=== PATIENT | female | born 2000 | race Caucasian/White ===

== ENCOUNTER 2020-06-28 01:11 | Inpatient (IN) | payer BC ==
[2020-06-28] VITALS (14 sets, daily range): BP systolic 85–103; BP diastolic 45–69
[~2020-06-28] VITALS: Ht 160 cm; Wt 53.8 kg
[2020-06-28] MEDS ORDERED: IV NORMAL SALINE 1000ML BAG 1,000 ML IV ONE ×2 (02:00→03:00)
--- NOTE | 2020-06-28 02:04 | PHYS DOC ---
General Adult EDM: Chief Complaint: SUICDAL IDEATION HPI: HPI: Patient is a 20 year old female who presents with complaints of acute overdose at about 10 PM on Monday night. Patient reports that she is under a lot of stress but is unable to specifically tell me why she decided do an overdose today. There is no troubles with relationships, she says she is not having any difficulty with finances and is no longer in school. However she does suffer from bipolar illness and PTSD. Today she took an unknown quantity but as many as 30 300 mg immediate release lithium as well as an unknown amount of Klonopin and or alprazolam. Patient arrives with some mild slurring of her speech but a GCS of 15 by EMS. Patient states that she vomited about an hour after she ingested the medications. She denied any diarrhea, chest pain, shortness of breath or headache. Patient had been in her usual state of fair physical health without any recent illnesses, cough cold or abdominal pain Review of Systems: Review of Systems: Constitutional: Denies fever or chills. [] Eyes: Denies change in visual acuity. [] HENT: Denies nasal congestion or sore throat. [] Respiratory: Denies cough or shortness of breath. [] Cardiovascular: Denies chest pain or edema. [] GI: Denies abdominal pain, nausea, vomiting, bloody stools or diarrhea. [] : Denies dysuria. [] Musculoskeletal: Denies back pain or joint pain. [] Integument: Denies rash. [] Neurologic: Denies headache, focal weakness or sensory changes. [] Endocrine: Denies polyuria or polydipsia. [] Lymphatic: Denies swollen glands. [] Psychiatric: Denies depression or anxiety. [] Heart Score: Risk Factors: Risk Factors: DM, Current or recent (<one month) smoker, HTN, HLP, family h istory of CAD, obesity. Risk Scores: Score 0 - 3: 2.5% MACE over next 6 weeks - Discharge Home Score 4 - 6: 20.3% MACE over next 6 weeks - Admit for Clinical Observation Score 7 - 10: 72.7% MACE over next 6 weeks - Early Invasive Strategies Physical Exam: PE: Constitutional: Well developed, well nourished, no acute distress, non-toxic appearance. [] HENT: Normocephalic, atraumatic, bilateral external ears normal, oropharynx moist, no oral exudates, nose normal. [] Eyes: PERRLA, EOMI, conjunctiva normal, no discharge. No ocular clonus [] Neck: Normal range of motion, no tenderness, supple, no stridor. [] Cardiovascular:Heart rate regular rhythm, no murmur [] Lungs & Thorax: Bilateral breath sounds clear to auscultation [] Abdomen: Bowel sounds normal, soft, no tenderness, no masses, no pulsatile eula s. [] Skin: Warm, dry, no erythema, no rash. [] Back: No tenderness, no CVA tenderness. [] Extremities: No tenderness, no cyanosis, no clubbing, ROM intact, no edema. [] Neurologic: Alert and oriented X 3, normal motor function, normal sensory function, no focal deficits noted. No hyperreflexia, NO resting tremor [] Psychologic: Affect flat, judgement impaired, mood sedate [] EKG: EKG: [] Radiology/Procedures: Radiology/Procedures: [] Course & Med Decision Making: Course & Med Decision Making Pertinent Labs and Imaging studies reviewed. (See chart for details) [] Dragon Disclaimer: Dragon Disclaimer: This electronic medical record was generated, in whole or in part, using a voice recognition dictation system. Justicifation of Admission Dx: Justifications for Admission: Justification of Admission Dx: Yes Comments: [place] overdose Critical Care Note Total Time (mins): 45 Comments Critical care of 45 minutes was billed outside of any teaching or procedure time. Critical care was charged secondary to impending collapse of the met abolic and central nervous system. CE SOLANO MD Jun 28, 2020 02:04
[2020-06-28 02:12] LABS: BASO # 0.1 x10^3/uL (0.0-0.2); BASO % 1 % (0-3); EOS # 0.1 x10^3/uL (0.0-0.7); EOS % 1 % (0-3); HEMOGLOBIN 12.8 g/dL (12.0-15.5); LYMPH # 3.4 x10^3/uL (1.0-4.8); LYMPH % 42 % (24-48); MEAN CORPUSCULAR HEMOGLOBIN 30 pg (25-35); MEAN CORPUSCULAR HGB CONC 34 g/dL (31-37); MEAN CORPUSCULAR VOLUME 90 fL (79-100); MONO # 0.7 x10^3/uL (0.0-1.1); MONO % 9 % (0-9); NEUT # 3.8 x10^3/uL (1.8-7.7); NEUT % 47 % (31-73); PLATELET COUNT 276 x10^3/uL (140-400); RED BLOOD COUNT 4.22 x10^6/uL (3.50-5.40); RED CELL DISTRIBUTION WIDTH 14.1 % (11.5-14.5); WHITE BLOOD COUNT 8.1 x10^3/uL (4.0-11.0)
[2020-06-28 02:28] LABS: CALCIUM 8.6 mg/dL (8.5-10.1); CREATININE 0.8 mg/dL (0.6-1.0); GFR 91.4; POTASSIUM 3.6 mmol/L (3.5-5.1)
[2020-06-28 02:32] LABS: SALIC < 2.8 mg/dL (2.8-20.0)
[2020-06-28 02:33] LABS: ALBUMIN 3.9 g/dL (3.4-5.0); ALBUMIN/GLOBULIN RATIO 1.1 (1.0-1.7); TOTAL BILIRUBIN 0.4 mg/dL (0.2-1.0); TOTAL PROTEIN 7.5 g/dL (6.4-8.2)
[2020-06-28 02:46] LABS: LI 1.9 mmol/L (0.6-1.2)
[2020-06-28 02:56] LABS: ACETAMIN < 2 mcg/ml (10-30)
[2020-06-28 04:23] LABS: BILIRUBIN,URINE NEGATIVE (NEG); CLARITY,URINE CLEAR; COLOR,URINE YELLOW; NITRITE,URINE NEGATIVE (NEG); PH,URINE 8.5 (<5.0-8.0); PROTEIN,URINE NEGATIVE (NEG-TRACE); UROBILINOGEN,URINE 0.2 mg/dL (0.2 mg/dL)
[2020-06-28 04:30] LABS: BARBITURATES NEG (NEG); BENZODIAZEPINES NEG (NEG); CANNABINOIDS NEG (NEG); COCAINE NEG (NEG); METHADONE NEG (NEG); OPIATES NEG (NEG); PHENCYCLIDINE NEG (NEG)
[2020-06-28 04:36] LABS: AMPHETAMINE/METHAMPHETAMINE NEG (NEG)
[2020-06-28 04:41] LABS: BACTERIA,URINE MODERATE /HPF (0-FEW); LI 1.7 mmol/L (0.6-1.2); RBC,URINE OCC /HPF (0-2); SQUAMOUS EPITHELIAL CELL,UR MOD /LPF
[2020-06-28] MEDS ORDERED: IV NORMAL SALINE 1000ML BAG 1,000 ML IV SCH (05:00)
[2020-06-28 05:32] LABS: U PREG PATIENT NEGATIVE (NEG)
[2020-06-28 06:16] LABS: LI 1.3 mmol/L (0.6-1.2)
--- NOTE | 2020-06-28 07:30 | NUR ---
Pt to ICU from ED by cart. Pt ambulated to bed. A&Ox4. SBP 80's - SR 50's. Asked patient if she was trying to kill herself by taking medication overdose. Said she didn't want to say because she has to go to work tomorrow and doesn't want to get admitted to a psych unit. Psychiatric Assessment Team notified. Pt on 1:1 suicide watch with Q15 minute checks. [place] levels being monitored every hours - lab values trending down.
[2020-06-28 10:10] LABS: LI 0.9 mmol/L (0.6-1.2)
[2020-06-28 10:14] LABS: CALCIUM 8.3 mg/dL (8.5-10.1); CREATININE 0.5 mg/dL (0.6-1.0); GFR 157.3; POTASSIUM 3.7 mmol/L (3.5-5.1)
--- NOTE | 2020-06-28 12:27 | EKG ---
[facility] [address] [place] [address] Test Date: 2020-06-28 Test Time: 02:23:55 Pat Name: LIAM HWANG Department: Room: Gender: F Telecommunications Switch Technician: : 2000 Requested By: CE SOLANO Order Number: [id number] Reading MD: Measurements Intervals [place] Rate: 68 P: 69 [place]: 164 QRS: 73 QRSD: 76 T: 65 QT: 386 QTc: 415 Interpretive Statements SINUS RHYTHM OTHERWISE NORMAL ECG RI6.01 No previous ECG available for comparison
--- NOTE | 2020-06-28 12:28 | SSS ---
ADMIT DATE: 06/28/2020 CHIEF COMPLAINT: Ingestion. HISTORY OF PRESENT ILLNESS: The patient is a pleasant 20-year-old female who has had a long history of suicidal ideation and suicide attempts as well as anorexia and other issues. Basically, she took as many as thirty 300-mg immediate release tablets of lithium. She also took an unknown amount of Xanax and Klonopin. When she initially presented to the ER, she had a GCS of 15. She came in by ambulance. She has now been admitted to the ICU where she is being examined. She is sleeping. She awoke and states she feels better and wants to go home. I have the psychiatric assessment team here with me. PAST MEDICAL HISTORY: Multiple suicide attempts, depression, anxiety, bipolar. ALLERGIES: SULFAMETHOXAZOLE AND TRIMETHOPRIM. FAMILY HISTORY: Diabetes. SOCIAL HISTORY: She does not drink or smoke. She states she has a job. MEDICATIONS: Reviewed, please refer to the MRAD. REVIEW OF SYSTEMS: GENERAL: No history of weight change, weakness or fevers. SKIN: No bruising, hair changes or rashes. EYES: No blurred, double or loss of vision. NOSE AND THROAT: No history of nosebleeds, hoarseness or sore throat. HEART: No history of palpitations, chest pain or shortness of breath on exertion. LUNGS: Denies cough, hemoptysis, wheezing or shortness of breath. GASTROINTESTINAL: Denies changes in appetite, nausea, vomiting, diarrhea or constipation. GENITOURINARY: No history of frequency, urgency, hesitancy or nocturia. NEUROLOGIC: Denies history of numbness, tingling, tremor or weakness. PSYCHIATRIC: No history of panic, anxiety or depression. ENDOCRINE: No history of heat or cold intolerance, polyuria or polydipsia. EXTREMITIES: Denies muscle weakness, joint pain, pain on walking or stiffness. PHYSICAL EXAMINATION: VITALS: Within normal limits and are stable. GENERAL: No apparent distress. Alert and oriented. HEENT: Normal cephalic atraumatic, external auditory canals are patent. EYES: Extraocular muscles are intact, pupils are equally round and reactive to light and accommodation. MUSCULOSKELETAL: Well developed, well nourished, good range of motion. ENDOCRINE: No thyromegaly was palpated. LYMPHATICS: No cervical chain or axillary nodes were noted. HEMATOPOIETIC: No bruising. NECK: Supple, no JVD, no thyromegaly was noted. LUNGS: Clear to auscultation in all lung roth without rhonchi or wheezing. HEART: RRR, S1, S2 present. Peripheral pulses intact, no obvious murmurs were noted. ABDOMEN: Soft, nontender. Positive bowel sounds no organomegaly, normal bowel sounds. EXTREMITIES: Without any cyanosis, clubbing, or edema. Pedal pulses intact, Homans sign is negative. NEUROLOGIC: Normal speech, normal tone. A and O x 3, moves all extremities, no obvious focal deficits. PSYCHIATRIC: Normal affect, normal mood. Stable. SKIN: No ulcerations or rashes, good skin turgor, no jaundice. VASCULAR: Good capillary refill, neurovascular bundle appears to be intact. ASSESSMENT AND PLAN: Ingestion, suspect suicide attempt, but at this point, she states she feels much better. Basically, we need a psychiatric assessment team to evaluate and see if she needs inpatient psychiatric. For now, we will continue ICU monitoring. Hope to resume her home meds soon. DVT prophylaxis. Full code. Consult Dr. Dawson. NEIDA HANDLEY DO DR: RAMIRO/marycruz JOB#: [id number] / [id number]
[2020-06-29] VITALS (7 sets, daily range): BP systolic 89–107; BP diastolic 46–57
[2020-06-29 04:00] LABS: CALCIUM 8.5 mg/dL (8.5-10.1); CREATININE 0.6 mg/dL (0.6-1.0); GFR 127.5; POTASSIUM 4.1 mmol/L (3.5-5.1)
[2020-06-29] MEDS ORDERED: Ativan PO (04:02)
[2020-06-29] MEDS ORDERED: Klonopin (04:02)
[2020-06-29] MEDS ORDERED: LITH300C PO (04:02)
--- NOTE | 2020-06-29 12:57 | SNU/HH DC ---
DISCHARGE ORDERS DISCHARGE INFORMATION: CONDITION ON DISCHARGE: Stable CODE STATUS: Code Status: Full CORRECTION: SNF STAY <30 DAYS: No HOSPICE: HOSPICE: No HOSPICE EVAL & TREAT: No LTAC: ADMIT TO LTAC: No POST DISCHARGE ORDERS: DIET AFTER DISCHARGE: Regular DISCHARGE MEDICATIONS: Home Meds Reported Medications [Klonopin] No Conflict Check, PRN for ANXIETY 06/29/20 [Ativan] No Conflict Check, 1 TAB PO PRN for ANXIETY 06/29/20 [place] Carbonate (LITHIUM CARBONATE) 300 Mg Capsule, 1 CAP PO BID for Bipolar, #60 CAP 2 Refills 06/29/20 NEIDA HANDLEY III DO Jun 29, 2020 12:57
--- NOTE | 2020-06-29 14:17 | NUR ---
SS following for discharge planning. SS reviewed pt chart and discussed with pt RN. Pt is from home and is currently on room air. Pt had overdose of mental health medications. Pt has history of Bipolar and PTSD. PAT team saw over the weekend. Bruce from the PAT team saw this morning. Pt agreeable to inpatient treatment. Referral phoned and faxed to [facility], ; fax [phone]. SS currently awaiting on acceptance decision. SS will continue to follow for discharge planning.
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
[2020-06-30 03:08] VITALS: BP 94/53
[2020-06-30 06:54] VITALS: BP 99/54
--- NOTE | 2020-06-30 09:00 | PDOC ---
[employer] PROGRESS NOTE Date of Service DOS: DATE: 06/30/20 TIME: 08:58 Chief Complaint Chief Complaint OD SI History of Present Illness History of Present Illness Pt seen and examined Vitals/I&O Vitals/I&O: Vital Signs Date Time Temp Pulse Resp B/P (MAP) Pulse Ox O2 Delivery O2 Flow Rate FiO2 06/30/20 06:54 97.8 53 17 99/54 (69) 98 Room Air 97.8 I & O 06/29/20 06/29/20 06/30/20 15:00 23:00 07:00 Intake Total 150 ml 0 ml 0 ml Balance 150 ml 0 ml 0 ml Physical Exam General: Alert, Oriented X3 Heart: Regular rate Lungs: Clear Abdomen: Normal bowel sounds Extremities: No clubbing Skin: No rashes Assessment and Plan Assessmemt and Plan Resolving OD SI Bipolar Plan Pt is medically stable for dc to inpt psych Comment Review of Relevant I have reviewed the following items anton (where applicable) has been applied. Justicifation of Admission Dx: Justifications for Admission: Justification of Admission Dx: Yes NEIDA HANDLEY III DO Jun 30, 2020 09:00
[2020-06-30 09:36] LABS: LI < 0.2 mmol/L (0.6-1.2)
--- NOTE | 2020-06-30 09:36 | NUR ---
SS following up with discharge planning. Discharge order on the chart for discharge to inpatient psych facility. [facility], ; fax [phone], contacted SS and reported that they needed progress note from today stating that pt is medically stable for discharge. They also reported that they needed recent lithium levels from today. SS discussed with pt RN and Dr. Barry. Stat labs ordered. Progress note completed. SS phoned and faxed progress note to [facility]. SS will fax lab results once received. Pt's RN notified.
--- NOTE | 2020-06-30 10:18 | NUR ---
SS following up with discharge planning. SS faxed updated lithium labs to [facility]. SS currently awaiting bed availability and will proceed accordingly.
[2020-06-30 10:39] VITALS: BP 102/53
--- NOTE | 2020-06-30 11:21 | NUR ---
SS following up with discharge planning. [facility] accepted pt. Report# [phone]. Pt will discharge today and go to [facility] via [facility] transportation between 1300 and 1330. Pt and pt's RN notified. Addendum: 06/30/20 at 1130 by JAKE MARISCAL SS Pt's mother notified.
--- NOTE | 2020-06-30 12:50 | PDOC ---
[employer] PROGRESS NOTE Date of Service DOS: DATE: 06/30/20 TIME: 12:49 Chief Complaint Chief Complaint OD SI History of Present Illness History of Present Illness 06/30/2022 Patient seen and examined Discussed with case management Seems to be at baseline Vitals/I&O Vitals/I&O: Vital Signs Date Time Temp Pulse Resp B/P (MAP) Pulse Ox O2 Delivery O2 Flow Rate FiO2 06/30/20 10:39 97.7 70 17 102/53 (69) 97.7 06/30/20 07:30 Room Air 06/30/20 06:54 98 I & O 06/29/20 06/29/20 06/30/20 14:59 22:59 06:59 Intake Total 150 ml 0 ml 0 ml Balance 150 ml 0 ml 0 ml Physical Exam General: Alert, Oriented X3 Heart: Regular rate Lungs: Clear Abdomen: Normal bowel sounds Extremities: No clubbing Skin: No rashes Labs Labs: Laboratory Tests Test 06/30/20 08:50 [place] Level < 0.2 mmol/L (0.6-1.2) [place] Last Dose Date 06/27/20 [place] Last Dose Time 2200 Assessment and Plan Assessmemt and Plan Overdose and suicidal ideation Patient seems to be at baseline She is medically stable for discharge to inpatient psychiatric center Comment Review of Relevant I have reviewed the following items anton (where applicable) has been applied. Justicifation of Admission Dx: Justifications for Admission: Justification of Admission Dx: Yes NEIDA HANDLEY III DO Jun 30, 2020 12:50
--- NOTE | 2020-06-30 12:59 | NUR ---
Discharge Note: ALAN HWANG EUNICE Discharge instructions and discharge home medications reviewed with Patient and a copy given. All questions have been answered and understanding verbalized. The following instructions and handouts were given: pt packet given to transportation. Discontinued lines and drains: peripheral IV discontinued by 1:1. Patient discharged to mental health facility via wheelchair by transportation.
== END 2020-06-30 12:52 | disposition short-term general hospital (02) | DRG 918 ==
LOC: ER 01:11 → 1 WEST ICU 06:06 → 2 NORTH 06-29 18:25
PROVIDERS: ADMIT Family Medicine; ATTEND Family Medicine
DX: T42.4X2A Poisoning by benzodiazepines, intentional self-harm, initial encounter (principal); R45.851 Suicidal ideations; F31.9 Bipolar disorder, unspecified; F43.10 Post-traumatic stress disorder, unspecified; Z20.828 Contact with and (suspected) exposure to other viral communicable diseases; F60.3 Borderline personality disorder; Y92.89 Other specified places as the place of occurrence of the external cause; Z91.5 Personal history of self-harm; Z88.2 Allergy status to sulfonamides; Z88.8 Allergy status to other drugs, medicaments and biological substances; Z81.8 Family history of other mental and behavioral disorders; Z83.3 Family history of diabetes mellitus
CPT/HCPCS: 36415; 80048; 80053; 80178; 80307; 80329; 81001; 81025; 83605; 84443; 85025; 87086; 87426; 93005; 96360; 96361; 99291; J7030; G0378; G0480; U0003-CS

== ENCOUNTER 2021-02-25 16:56 | Emergency (ER) | payer BC, OTHER ==
[~2021-02-25] VITALS: Ht 160 cm; Wt 43.1 kg
[~2021-02-25 16:56] MED LIST: Ativan PO; Klonopin; LITH300C PO
[2021-02-25] MEDS: IV NORMAL SALINE 1000ML BAG 1,000 ML IV ONE ×2 (17:50)
[2021-02-25] MEDS: ASPIRIN 325 MG TABLET PO ONE (17:50)
[2021-02-25 18:03] LABS: BASO % 1 % (0-3); EOS % 1 % (0-3); HEMATOCRIT 37.6 % (36.0-47.0); HEMOGLOBIN 12.9 g/dL (12.0-15.5); LYMPH # 2.4 x10^3/uL (1.0-4.8); LYMPH % 32 % (24-48); MEAN CORPUSCULAR HEMOGLOBIN 31 pg (25-35); MEAN CORPUSCULAR HGB CONC 34 g/dL (31-37); MEAN CORPUSCULAR VOLUME 91 fL (79-100); MONO # 0.7 x10^3/uL (0.0-1.1); MONO % 9 % (0-9); NEUT # 4.4 x10^3/uL (1.8-7.7); NEUT % 58 % (31-73); PLATELET COUNT 280 x10^3/uL (140-400); RED BLOOD COUNT 4.13 x10^6/uL (3.50-5.40); RED CELL DISTRIBUTION WIDTH 13.6 % (11.5-14.5); WHITE BLOOD COUNT 7.6 x10^3/uL (4.0-11.0)
--- NOTE | 2021-02-25 18:04 | RAD ---
EXAM: CHEST 1 VIEW History: Chest pain COMPARISON: None available. TECHNIQUE: Single portable radiograph of the chest FINDINGS: The cardiac silhouette is unremarkable. The lungs are clear bilaterally. The costophrenic sulci are clear and well demarcated. IMPRESSION: No radiographic evidence of an acute cardiopulmonary process. Electronically signed by: Brandon Santiago MD (02/25/2021 6:02 PM) [id number]
[2021-02-25 18:12] LABS: BILIRUBIN,URINE MODERATE (NEG); CLARITY,URINE CLOUDY; COLOR,URINE AMBER; NITRITE,URINE NEGATIVE (NEG); PROTEIN,URINE 30 mg/dL (NEG-TRACE)
[2021-02-25 18:15] LABS: BARBITURATES NEG (NEG); BENZODIAZEPINES NEG (NEG); CANNABINOIDS NEG (NEG); COCAINE NEG (NEG); METHADONE NEG (NEG); OPIATES NEG (NEG); PHENCYCLIDINE NEG (NEG)
[2021-02-25 18:16] LABS: AMPHETAMINE/METHAMPHETAMINE NEG (NEG)
[2021-02-25 18:33] LABS: HYALINE CASTS, URINE MANY /HPF
[2021-02-25 18:43] LABS: CALCIUM 7.7 mg/dL (8.5-10.1); CREATININE 0.6 mg/dL (0.6-1.0); GFR 127.5; POTASSIUM 3.1 mmol/L (3.5-5.1)
[2021-02-25 18:49] LABS: ALBUMIN 3.4 g/dL (3.4-5.0); ALBUMIN/GLOBULIN RATIO 1.2 (1.0-1.7); MAGNESIUM 1.3 mg/dL (1.8-2.4); TOTAL BILIRUBIN 0.7 mg/dL (0.2-1.0); TOTAL PROTEIN 6.2 g/dL (6.4-8.2)
--- NOTE | 2021-02-25 18:50 | EKG ---
[facility] [address] [place] [address] Test Date: 2021-02-25 Test Time: 17:15:14 Pat Name: LIAM HWANG Department: Room: Gender: F Vaccine Manager: : 2000 Requested By: CARIE GATICA Order Number: [id number] Reading MD: Measurements Intervals [place] Rate: 72 P: 67 [place]: 130 QRS: 79 QRSD: 66 T: 67 QT: 358 QTc: 393 Interpretive Statements SINUS RHYTHM LEFT ATRIAL ABNORMALITY ABNORMAL ECG RI6.02 No previous ECG available for comparison
[2021-02-25 18:53] LABS: AMORPHOUS SEDIMENT,UR PRESENT /HPF
[2021-02-25 18:54] LABS: BACTERIA,URINE 0 /HPF (0-FEW); RBC,URINE 0 /HPF (0-2)
--- NOTE | 2021-02-25 19:43 | PHYS DOC ---
Past Medical History Past Medical History: Anxiety, Bipolar, Other Additional Past Medical Histor: ANOREXIA NERVOSA (ENCARIE Cortez SHIRT FOLDING MACHINE OPERATOR) Past Surgical History: No Surgical History (CARIE GATICA SHIRT FOLDING MACHINE OPERATOR) Smoking Status: Never Smoker Alcohol Use: None (ENCARIE SHIRT FOLDING MACHINE OPERATOR) General Adult EDM: Chief Complaint: CHEST PAIN-NON CARDIAC NATURE HPI: HPI: Patient is a 20 year old female with a history of anxiety, anorexia, bipolar, who presents the ED today to be evaluated for rhabdomyolysis. Patient states she had a lab work drawn by her doctor and she was noted to have a CK of 1000. She states due to anorexia she has not eaten anything for a whole week. She states she had cottage cheese after they told her her CK was up and she needs to come to the ED. Patient is complaining of pain to bilateral lower extremities. Rates the pain as mild and intermittent and states is chronic. Also complaining of 2 out of 10 left-sided chest pain described as sharp and intermittent, patient states the chest pain is chronic. Patient denies anything specifically exacerbating or relieving her pain. (ENCARIE Cortez SHIRT FOLDING MACHINE OPERATOR) Review of Systems: Review of Systems: Constitutional: Denies fever or chills. [] Eyes: Denies change in visual acuity. [] HENT: Denies nasal congestion or sore throat. [] Respiratory: Denies cough or shortness of breath. [] Cardiovascular: Reports chest pain. GI: Denies abdominal pain, nausea, vomiting, bloody stools or diarrhea. [] : Denies dysuria. [] Musculoskeletal: Reports bilateral lower extremity pain. Denies back pain Integument: Denies rash. [] Neurologic: Denies headache, focal weakness or sensory changes. [] Psychiatric: Reports not eating for 1 week, anorexia (DELMYCARIE Vilchis SHIRT FOLDING MACHINE OPERATOR) Heart Score: C/O Chest Pain: N/A Risk Factors: Risk Factors: DM, Current or recent (<one month) smoker, HTN, HLP, family history of CAD, obesity. Risk Scores: Score 0 - 3: 2.5% MACE over next 6 weeks - Discharge Home Score 4 - 6: 20.3% MACE over next 6 weeks - Admit for Clinical Observation Score 7 - 10: 72.7% MACE over next 6 weeks - Early Invasive Strategies (CARIE GATICA SHIRT FOLDING MACHINE OPERATOR) Current Medications: Current Medications Medications (Trade) Dose Ordered Sig/Omero Start Time Stop Time Status Last Admin Dose Admin Aspirin (Kyra Aspirin) 325 mg 1X ONCE 02/25/21 17:30 02/25/21 17:31 DC 02/25/21 17:50 325 MG Sodium Chloride 1,000 ml @ 1,000 mls/hr 1X ONCE 02/25/21 17:30 02/25/21 18:29 DC 02/25/21 17:50 1,000 MLS/HR (CARIE GATICA Dana SHIRT FOLDING MACHINE OPERATOR) Allergies: Allergies: Allergies Coded Allergies Type Severity Reaction Last Updated Verified sulfamethoxazole Allergy Intermediate Rash 06/28/20 Yes trimethoprim Allergy Intermediate Rash 06/28/20 Yes (CARIE GATICA Dana SHIRT FOLDING MACHINE OPERATOR) Physical Exam: PE: Constitutional: Thin anorexic appearing patient, no acute distress, non-toxic appearance. [] HENT: Normocephalic, atraumatic, bilateral external ears normal, oropharynx moist, no oral exudates, nose normal. [] Eyes: PERRLA, EOMI, conjunctiva normal, no discharge. [] Neck: Normal range of motion, no tenderness, supple, no stridor. [] Cardiovascular:Heart rate regular rhythm, no murmur [] Lungs & Thorax: Bilateral breath sounds clear to auscultation [] Abdomen: Bowel sounds normal, soft, no tenderness, no masses, no pulsatile masses. [] Skin: Warm, dry, no erythema, no rash. Left forearm with scabs from chronic cutting Back: No tenderness, no CVA tenderness. [] Extremities: No tenderness, no cyanosis, no clubbing, ROM intact, no edema. [] Neurologic: Alert and oriented X 3, normal motor function, normal sensory func tion, no focal deficits noted. [] Psychologic: Flat affect (CARIE GATICA Dana SHIRT FOLDING MACHINE OPERATOR) Current Patient Data: Labs: Laboratory Tests Test 02/25/21 17:16 02/25/21 17:24 02/25/21 17:43 02/25/21 18:20 Urine Collection Type Unknown Urine Color Devora Urine Clarity Cloudy Urine pH 6.0 (<5.0-8.0) Urine Specific Clifford 1.025 (1.000-1.030) Urine Protein 30 mg/dL (NEG-TRACE) Urine Glucose (UA) Negative mg/dL (NEG) Urine Ketones (Stick) >=80 mg/dL (NEG) Urine Blood Moderate (NEG) Urine Nitrite Negative (NEG) Urine Bilirubin Moderate (NEG) Urine Urobilinogen Dipstick 1.0 mg/dL (0.2 mg/dL) Urine Leukocyte Esterase Trace (NEG) Urine RBC 0 /HPF (0-2) Urine WBC 5-10 /HPF (0-4) Urine Squamous Epithelial Cells Many /LPF Urine Amorphous Sediment Present /HPF Urine Bacteria 0 /HPF (0-FEW) Urine Hyaline Casts Many /HPF Urine Mucus Marked /LPF Urine Opiates Screen Neg (NEG) Urine Methadone Screen Neg (NEG) Urine Barbiturates Neg (NEG) Urine Phencyclidine Screen Neg (NEG) Urine Amphetamine/Methamphetamine Neg (NEG) Urine Benzodiazepines Screen Neg (NEG) Urine Cocaine Screen Neg (NEG) Urine Cannabinoids Screen Neg (NEG) Urine Ethyl Alcohol Neg (NEG) White Blood Count 7.6 x10^3/uL (4.0-11.0) Red Blood Count 4.13 x10^6/uL (3.50-5.40) Hemoglobin 12.9 g/dL (12.0-15.5) Hematocrit 37.6 % (36.0-47.0) Mean Corpuscular Volume 91 fL (79-100) Mean Corpuscular Hemoglobin 31 pg (25-35) Mean Corpuscular Hemoglobin Concent 34 g/dL (31-37) Red Cell Distribution Width 13.6 % (11.5-14.5) Platelet Count 280 x10^3/uL (140-400) Neutrophils (%) (Auto) 58 % (31-73) Lymphocytes (%) (Auto) 32 % (24-48) Monocytes (%) (Auto) 9 % (0-9) Eosinophils (%) (Auto) 1 % (0-3) Basophils (%) (Auto) 1 % (0-3) Neutrophils # (Auto) 4.4 x10^3/uL (1.8-7.7) Lymphocytes # (Auto) 2.4 x10^3/uL (1.0-4.8) Monocytes # (Auto) 0.7 x10^3/uL (0.0-1.1) Eosinophils # (Auto) 0.0 x10^3/uL (0.0-0.7) Basophils # (Auto) 0.0 x10^3/uL (0.0-0.2) POC Urine HCG, Qualitative Hcg negative (Negative) Sodium Level 143 mmol/L (136-145) Potassium Level 3.1 mmol/L (3.5-5.1) L Chloride Level 107 mmol/L (98-107) Carbon Dioxide Level 17 mmol/L (21-32) L Anion Gap 19 (6-14) H Blood Urea Nitrogen 15 mg/dL (7-20) Creatinine 0.6 mg/dL (0.6-1.0) Estimated GFR (Cockcroft-Gault) 127.5 BUN/Creatinine Ratio 25 (6-20) H Glucose Level 67 mg/dL (70-99) L Calcium Level 7.7 mg/dL (8.5-10.1) L Magnesium Level 1.3 mg/dL (1.8-2.4) L Total Bilirubin 0.7 mg/dL (0.2-1.0) Aspartate Amino Transferase (AST) 35 U/L (15-37) Alanine Aminotransferase (ALT) 25 U/L (14-59) Alkaline Phosphatase 50 U/L (46-116) Creatine Kinase 589 U/L (26-192) H Creatine Kinase MB (Mass) 4.2 ng/mL (0.0-3.6) H Creatine Kinase MB Relative Index 0.7 % (0-4) Troponin I Quantitative < 0.017 ng/mL (0.000-0.055) Total Protein 6.2 g/dL (6.4-8.2) L Albumin 3.4 g/dL (3.4-5.0) Albumin/Globulin Ratio 1.2 (1.0-1.7) Laboratory Tests 02/25/21 17:24 Laboratory Tests 02/25/21 18:20 Vital Signs: Vital Signs Date Time Temp Pulse Resp B/P (MAP) Pulse Ox O2 Delivery O2 Flow Rate FiO2 02/25/21 17:07 98.5 92 17 125/70 (88) 97 Room Air 98.5 (CARIE GATICA SHIRT FOLDING MACHINE OPERATOR) EKG: EKG: [] (CARIE GATICA APRN) Radiology/Procedures: Radiology/Procedures: []PROCEDURE: PORTABLE CHEST 1V EXAM: CHEST 1 VIEW History: Chest pain COMPARISON: None available. TECHNIQUE: Single portable radiograph of the chest FINDINGS: The cardiac silhouette is unremarkable. The lungs are clear bilaterally. The costophrenic sulci are clear and well demarcated. IMPRESSION: No radiographic evidence of an acute cardiopulmonary process. Electronically signed by: Brandon Santiago MD (02/25/2021 6:02 PM) [id number] DICTATED and SIGNED BY: BRANDON SANTIAGO MD DATE: 02/25/21 [id number] 0 (CARIE GATICA APRN) Course & Med Decision Making: Course & Med Decision Making Pertinent Labs and Imaging studies reviewed. (See chart for details) This a 20-year-old female patient with history of anorexia presenting to the ED today to be evaluated for rhabdomyolysis. She had not eaten for 1 week and had labs done today and her CK was 1000. She is complaining of chronic chest pain and chronic lower extremity pain. Patient is thin appearing. Vitals on arrival to the ED temperature 98.5 heart rate 92 respirations 17 blood pressure 125/70 O2 sats 97% on room air. CBC with no acute findings, CMP with potassium of 3.1, oral potassium replacement offered which she refused glucose 67 anion gap is 19 CK 589 Patient was given 2 L of fluids. I talked to patient about her anorexia. Patient is very adamant about eating. She states she does not want to eat anything with calories. For whole week she has only had cottage cheese. Mother is present in the room. We talked about other things she can eat that have no calories, patient not interested in eating anything, not interested in drinking water, she states she is trying to lose weight, her BMI is 16.8, she is currently requesting to be discharged to home. She has a psychologist as well as a primary care doctor, I recommended she follows up in the course of this week (CARIE GATICA APRN) Dragon Disclaimer: Dragon Disclaimer: This electronic medical record was generated, in whole or in part, using a voice recognition dictation system. (CARIE GATICA APRN) Departure Departure Impression: Primary Impression: Anorexia Additional Impressions: Rhabdomyolysis Qualified Codes: M62.82 - Rhabdomyolysis Hypokalemia Disposition: HOME / SELF CARE / HOMELESS Condition: STABLE Referrals: UNKNOWN PCP NAME (PCP) follow up with your psychologist and primary care doctor next week Patient Instructions: Anorexia Nervosa, Hypokalemia, Rhabdomyolysis Additional Instructions: You were evaluated in the emergency room for rhabdomyolysis, your CK was 589. We highly recommend he push fluids. Your potassium was also low at 3.1, we highly recommend you trying to eat potassium rich foods like spinach, bananas, sweet potatoes. We know this is very difficult on you. Try your best. Consider drinking Gatorade as well. Follow-up with your primary care doctor and psychologist Attending Signature Attending Signature I have participated in the care of this patient and I have reviewed and agree with all pertinent clinical information above including history, exam, and recommendations. (LUCRECIA ROSARIO MD) CARIE GATICA APRN Feb 25, 2021 19:43 LUCRECIA ROSARIO MD Feb 27, 2021 05:57
[2021-02-25 20:15] VITALS: BP 95/62
[2021-02-25] MEDS: POTASSIUM BICARB 20 MEQ EFFERVESCENT TABLET. PO ONE (20:18)
== END 2021-02-25 20:36 | disposition home or self-care (01) ==
LOC: ER 16:56
DX: M62.82 Rhabdomyolysis (principal); R63.0 Anorexia; E87.6 Hypokalemia; R07.89 Other chest pain; F41.9 Anxiety disorder, unspecified; F31.9 Bipolar disorder, unspecified; Z88.2 Allergy status to sulfonamides; Z88.8 Allergy status to other drugs, medicaments and biological substances
CPT/HCPCS: 36415; 71045; 80053; 80307; 81001; 81025; 82553; 83735; 84484; 85025; 87086; 93005; 96360; 99285; J7030